=== PATIENT | female | born 1950 | race Caucasian/White ===

== ENCOUNTER 2023-05-27 22:44 | Emergency (ER) | payer MEDICARE, OTHER, SELFPAY ==
[2023-05-27 22:52] VITALS: BP 175/79; PULSE 79; RESP 18; TEMP 36.2; O2SAT 97; BMI 38.4
--- NOTE | 2023-05-27 23:02 | DI.RAD.S_ITS ---
PROCEDURE: XR CHEST 1V INDICATIONS: chest pain TECHNIQUE: One view of the chest was acquired. COMPARISON: None. FINDINGS: Surgical changes and devices: None. Lungs and pleura: Lungs are clear. No pleural effusions or pneumothorax. Mediastinum: Mediastinal contours appear normal. Heart size is normal. Bones and chest wall: No suspicious bony lesions. Overlying soft tissues appear unremarkable. IMPRESSION: No acute cardiopulmonary abnormality is seen. Dictated by: Clovis Giron M.D. on 05/28/2023 at 0:10 Approved by: Clovis Giron M.D. on 05/28/2023 at 0:10
[2023-05-28 00:33] LABS: INR 0.8 (0.9-1.3); Prothrombin Time 9.7 SECONDS (9.4-12.5)
[2023-05-28 00:34] LABS: Add Manual Diff / Slide Review NO; Basophils Absolute Auto 100 /uL (0-100); Basophils Percent Auto 0.7 % (0-2); Eosinophils Absolute Auto 400 /uL (0-450); Eosinophils Percent Auto 3.6 % (2-4); Hematocrit 38.5 % (36-46); Hemoglobin 12.9 g/dL (12.0-16.0); Lymphocytes Absolute Auto 3900 /uL (1100-4500); Lymphocytes Percent Auto 40.8 % (25-40); Mean Corpuscular HGB Conc 33.5 % (30-36); Mean Corpuscular Volume 89.5 fL (80-100); Monocytes Absolute Auto 900 /uL (0-900); Monocytes Percent Auto 9.3 % (3-14); Neutrophils Absolute Auto 4400 /uL (1500-7000); Neutrophils Percent Auto 45.6 % (50-75); Platelet Count 351 X10^3/uL (150-400); Red Cell Distribution Width 13.3 % (11.6-14.8); White Blood Cell Count 9.7 X10^3/uL (4.5-11.0)
[2023-05-28 00:35] LABS: PTT Partial Thromboplastin Tim 37 SECONDS (25.1-36.5)
[2023-05-28] MEDS: ASPIRIN 81 MG CHEW TAB 324 MG PO (00:36)
[2023-05-28 00:37] LABS: Alanine Aminotransferase 36 IU/L (<35); Albumin Globulin Ratio 1.1 (1.0-2.8); Alkaline Phosphatase 109 U/L (38-126); Aspartate Aminotransferase 41 IU/L (14-36); BUN Creatinine Ratio 36.2 (6-22); Bilirubin Total 0.4 mg/dL (0.2-1.3); Blood Urea Nitrogen 21 mg/dL (7-17); Calcium 9.2 mg/dL (8.4-10.2); Carbon Dioxide 24 mmol/L (22-32); Chloride 111 mmol/L (98-107); Creatine Kinase 38 U/L (30-135); Estimated Glomerular Filt Rate > 60 mL/min (>60); Globulin 3.5 g/dL (1.7-4.1); Glucose 89 mg/dL (80-110); HEMOLYSIS 38 (0-50); Lipase 259 U/L (23-300); Magnesium 2.2 mg/dL (1.6-2.3); Potassium 4.3 mmol/L (3.4-5.1); Sodium 141 mmol/L (137-145); Total Protein 7.5 g/dL (6.3-8.2)
[2023-05-28 00:49] LABS: Troponin I < 0.012 ng/mL (0.01-0.034)
[2023-05-28 01:27] VITALS: PULSE 69; O2SAT 97
[2023-05-28 01:28] VITALS: BP 169/74
--- NOTE | 2023-05-28 02:28 | ED.ARRPALP ---
HPI - Arrhythmia/Palpitations General Chief Complaint: Arrhythmia/Palpitations Stated Complaint: rapid HR/dizziness/sore chest Time Seen by Provider: 05/28/23 02:28 Source: patient Mode of arrival: Ambulatory History of Present Illness HPI narrative: 72-year-old female history of hypothyroidism presents with complaint of rapid heart rate for the past last several it is and then resolved. Sometimes lasts a little bit longer. She will get a chest according to occurs does not feel short of breath does not get diaphoretic. Has some nausea sometimes. No vomiting. She is felt dizzy but had no syncope. No swelling in extremities. Denies any other symptoms. No cough cold congestion symptoms. Has celiac/IBS so sometimes has diarrhea but not regularly. Patient states she is on thyroxine for hypothyroidism. Prior surgeries include gastric sleeve, no prior cardiac interventions. Did have a Holter monitor a year 2 ago for bradycardia but was told it was normal. Patient states no tobacco, rare alcohol, no recreational drugs. Her primary care is in [place] and she is spending the winter here. Related Data Allergies Allergy/AdvReac Type Severity Reaction Status Date / Time Sulfa (Sulfonamide Allergy Severe Hives Verified 05/27/23 23:02 Antibiotics) tetanus immune globulin Allergy Severe Joint Pain Verified 05/27/23 23:02 meperidine [From Demerol] Allergy Intermediate Vomiting Verified 05/27/23 23:02 Review of Systems Review of Systems ROS Unobtainable: All systems reviewed & are unremarkable except as noted in HPI and below Patient History Social History Smoking Status: Never smoker Smoking Status: Never smoker alcohol intake frequency: a few times a month Alcohol type: wine Substance Use Type: does not use Exam Narrative Exam Narrative: GENERAL: Alert and oriented x three, female in mild distress HEENT: Head normocephalic, atraumatic, EOMI, pupils reactive, face symmetric, moist mucous membranes NECK: Supple, full range of motion CARDIOVASCULAR: Regular rate and rhythm without murmurs, rubs or gallops. No JVD. No edema bilateral lower extremities. RESPIRATORY: Breath sounds equal bilaterally, no wheezes rales or rhonchi. ABDOMEN: Soft, nontender. Normoactive bowel sounds all 4 quadrants. No guarding or rebound, rigidity, no mass : No CVA tenderness EXTREMITIES: Normal range of motion, no clubbing or edema. Neurovascularly intact NEUROLOGICAL: Cranial nerves II through XII grossly intact. Moving all extremities SKIN: Warm, dry, no petechiae, no rashes or lesions. Initial Vital Signs Initial Vital Signs: Vital Signs Temperature 97.1 F L 05/27/23 22:52 Pulse Rate 79 05/27/23 22:52 Respiratory Rate 18 05/27/23 22:52 Blood Pressure 175/79 H 05/27/23 22:52 Pulse Oximetry 97 05/27/23 22:52 Oxygen Delivery Method Room Air 05/27/23 22:52 Course Orders Ordered: ED Orders 05/27/23 23:02 XR chest 1V Stat Complete Blood Count AUTO DIFF Stat Comprehensive Metabolic Panel Stat Lipase Stat Magnesium Stat PTT Partial Thromboplastin Lul Stat Prothrombin Time INR Stat Troponin & CK Cardiac Panel Stat EKG-12 Lead Stat 05/28/23 00:10 Free T4, Direct Thyroxine Stat TSH w/ Reflex to FT4 Stat Discontinued Medications Aspirin (Aspirin 81 Mg Chew Tab) 324 mg PO NOW ONE Stop: 05/27/23 23:03 Last Admin: 05/28/23 00:36 Dose: 324 mg Documented By: AB Vital Signs Vital signs: Vital Signs - 8 hr 05/27/23 22:52 05/28/23 01:27 05/28/23 01:28 Temperature 97.1 F L Pulse Rate 79 69 Respiratory Rate 18 Blood Pressure 175/79 H 169/74 H Pulse Oximetry 97 97 Oxygen Delivery Method Room Air MDM - Arrhythmia/Palpitations Lab Data 05/28/23 00:10 05/28/23 00:10 Labs: Lab Results 05/28/23 Range/Units 00:10 WBC 9.7 (4.5-11.0) X10^3/uL RBC 4.30 (4.0-5.2) X10^6/uL Hgb 12.9 (12.0-16.0) g/dL Hct 38.5 (36-46) % MCV 89.5 (80-100) fL MCH 30.0 (26-34) PG MCHC 33.5 (30-36) % RDW 13.3 (11.6-14.8) % Plt Count 351 (150-400) X10^3/uL Neut % (Auto) 45.6 L (50-75) % Lymph % (Auto) 40.8 H (25-40) % [place] % (Auto) 9.3 (3-14) % Eos % (Auto) 3.6 (2-4) % Baso % (Auto) 0.7 (0-2) % Neut # (Auto) 4400 (2747-7781) /uL Lymph # (Auto) 3900 (8043-0149) /uL [place] # (Auto) 900 (0-900) /uL Eos # (Auto) 400 (0-450) /uL Baso # (Auto) 100 (0-100) /uL PT 9.7 (9.4-12.5) SECONDS INR 0.8 L (0.9-1.3) APTT 37 H (25.1-36.5) SECONDS Sodium 141 (137-145) mmol/L Potassium 4.3 (3.4-5.1) mmol/L Chloride 111 H (98-107) mmol/L Carbon Dioxide 24 (22-32) mmol/L BUN 21 H (7-17) mg/dL Creatinine 0.58 (0.52-1.04) mg/dL Estimated GFR > 60 (>60) mL/min BUN/Creatinine Ratio 36.2 H (6-22) Glucose 89 (80-110) mg/dL Calcium 9.2 (8.4-10.2) mg/dL Magnesium 2.2 (1.6-2.3) mg/dL Total Bilirubin 0.4 (0.2-1.3) mg/dL AST 41 H (14-36) IU/L ALT 36 H (<35) IU/L Alkaline Phosphatase 109 (38-126) U/L Total Creatine Kinase 38 (30-135) U/L Troponin I < 0.012 (0.01-0.034) ng/mL Total Protein 7.5 (6.3-8.2) g/dL Albumin 4.0 (3.5-5.0) g/dL Globulin 3.5 (1.7-4.1) g/dL Albumin/Globulin Ratio 1.1 (1.0-2.8) Lipase 259 (23-300) U/L TSH < 0.02 L (0.47-4.68) uIU/mL Free T4 0.64 L (0.78-2.19) ng/dL Imaging Data Chest x-ray: Radiologist's Impresson: Virginia Monzon??72??F??1950 ? Allergy/Adv: Sulfa (Sulfonamide Antibiotics), tetanus immune globulin, meperidine (More??) Close Chest X-Ray (Signed) Giron,Clovis - 05/27/23 Launch?[address] [address] XRay Report Signed Patient: Virginia Monzon MR#: [id number] : 1950 Acct:[id number] Age/Sex: 72 / F Date of Service: 05/27/23 Loc: ED Accession Number: [id number] Procedure: XR chest 1V Ordering Provider: Nilda Sutton D.O. PROCEDURE: XR CHEST 1V INDICATIONS: chest pain TECHNIQUE: One view of the chest was acquired. COMPARISON: None. FINDINGS: Surgical changes and devices: None. Lungs and pleura: Lungs are clear. No pleural effusions or pneumothorax. Mediastinum: Mediastinal contours appear normal. Heart size is normal. Bones and chest wall: No suspicious bony lesions. Overlying soft tissues appear unremarkable. IMPRESSION: No acute cardiopulmonary abnormality is seen. Dictated by: Clovis Giron M.D. on 05/28/2023 at 0:10 Approved by: Clovis Giron M.D. on 05/28/2023 at 0:10 ECG Data Attestation: I personally reviewed and interpreted this ECG as follows: Prior ECG tracings: not available for review Interpretation: Sinus rhythm first-degree AV block rate of 67 PA 258 QRS of [address] changes. No priors for comparison. MDM Narrative Medical decision making narrative: 72-year-old female with palpitations sensation of fast heartbeat, was not captured here today. EKG shows a first-degree AV block but no other acute changes no priors for comparison. Chest x-ray is negative Patient's labs including CBC, CMP show no significant changes slight predominance of lymphocytes. INR 0.2. AST is 41 ALT is 36. Otherwise negative bilirubin in lipase. Troponins negative. She has not had her thyroid levels checked the past 7-8 months, had her thyroid level checked about a month after starting hypothyroidism medications but not since. Patient would like to return home we will discharge home and follow-up result by phone. Discussed with patient plan for follow up outpatient for Holter monitor or ZIO patch. We will give local contact she lives in [place] it isn't planning on returning any time soon. TSH is less than 0.02, free T4 is 0.64. Spoke with patient and her results. She will reach out to her primary care physician. Both TSH and free T4 are low. Discharge Plan Departure Patient Disposition: Home Clinical Impression: Palpitations Instructions: DI for Palpitations Activity Restrictions/Additional Instructions: Please follow up with your physician for recheck. There is also contact for Cardiology locally. Please call to set up an appointment. You may need a ZIO patch for Holter monitor. Please return for recurrent episodes of palpitations or fast, irregular heartbeat, new chest pain, shortness of breath, lightheadedness or passing out, increasing swelling of your extremities, diaphoresis or sweatiness or other new or concerning changes Referrals: Vinny Wing MD [Physician] - Stand Alone Forms: Patient Portal/API
[2023-05-28 03:51] LABS: TSH w/ Reflex to FT4 < 0.02 uIU/mL (0.47-4.68)
[2023-05-28 04:24] LABS: Free T4, Direct Thyroxine 0.64 ng/dL (0.78-2.19)
== END 2023-05-28 03:17 | disposition home or self-care (01) ==
PROVIDERS: Emergency Provider Emergency Medicine
DX: R00.2 Palpitations (principal); I44.0 Atrioventricular block, first degree
CPT/HCPCS: 36415; 71045; 80053; 82550; 83690; 83735; 84439; 84443; 84484; 85025; 85610; 85730; 93005; 99283; 99284

== ENCOUNTER → 2023-12-28 13:31 | Outpatient (CLI) | payer MEDICARE, OTHER, SELFPAY ==
--- NOTE | 2023-12-28 13:33 | DI.RAD.S_ITS ---
PROCEDURE: XR HAND RT 2V INDICATIONS: arthritis eval TECHNIQUE: 3 views of the hand(s) acquired. COMPARISON: None. FINDINGS: Bones: No fractures or dislocations. There is significant IP narrowing severe at the 2nd and 3rd DIP joints. Periarticular osteophytes as well as subchondral sclerosis are present. No definitive erosions are identified. In addition, prominent 1st CMC arthritic changes present. Soft tissues: No suspicious soft tissue calcifications. 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 Dictated by: Melinda De M.D. on 12/29/2023 at 15:57 Approved by: Melinda De M.D. on 12/29/2023 at 15:57
== END ==
PROVIDERS: PCP Family Medicine; Referring Provider Family Medicine; Visit Provider Family Medicine
DX: M19.90 Unspecified osteoarthritis, unspecified site (principal)
CPT/HCPCS: 73120

== ENCOUNTER → 2023-12-29 08:22 | Outpatient (CLI) | payer MEDICARE, OTHER, SELFPAY ==
[2023-12-29 09:13] LABS: Add Manual Diff / Slide Review NO; Basophils Absolute Auto 100 /uL (0-100); Basophils Percent Auto 0.9 % (0-2); Eosinophils Absolute Auto 300 /uL (0-450); Eosinophils Percent Auto 3.9 % (2-4); Hematocrit 40.4 % (36-46); Hemoglobin 13.4 g/dL (12.0-16.0); Lymphocytes Absolute Auto 3200 /uL (1100-4500); Lymphocytes Percent Auto 44.4 % (25-40); Mean Corpuscular HGB Conc 33.2 % (30-36); Mean Corpuscular Hemoglobin 31.1 PG (26-34); Mean Corpuscular Volume 93.6 fL (80-100); Monocytes Absolute Auto 500 /uL (0-900); Monocytes Percent Auto 6.7 % (3-14); Neutrophils Absolute Auto 3200 /uL (1500-7000); Neutrophils Percent Auto 44.1 % (50-75); Platelet Count 333 X10^3/uL (150-400); Red Blood Cell Count 4.31 X10^6/uL (4.0-5.2); White Blood Cell Count 7.2 X10^3/uL (4.5-11.0)
[2023-12-29 09:47] LABS: Erythrocyte Sedimentation Rate 16 MM/HR (0-20)
[2023-12-29 10:18] LABS: Hemoglobin A1C% w Est Avg Glu 5.4 % (4.0-6.0)
[2023-12-29 10:28] LABS: TSH w/ Reflex to FT4 2.57 uIU/mL (0.47-4.68)
[2023-12-29 14:36] LABS: HEMOLYSIS < 15 (0-50)
[2023-12-29 14:44] LABS: Alanine Aminotransferase 24 IU/L (<35); Albumin 4.1 g/dL (3.5-5.0); Albumin Globulin Ratio 1.5 (1.0-2.8); Alkaline Phosphatase 88 U/L (38-126); Aspartate Aminotransferase 28 IU/L (14-36); BUN Creatinine Ratio 20.2 (6-22); Bilirubin Total 0.6 mg/dL (0.2-1.3); Blood Urea Nitrogen 17 mg/dL (7-17); C-Reactive Protein Quant < 0.5 mg/dL (<1.0); Calcium 9.5 mg/dL (8.4-10.2); Carbon Dioxide 28 mmol/L (22-32); Chloride 107 mmol/L (98-107); Cholesterol 207 mg/dL (140-199); Estimated Glomerular Filt Rate > 60 mL/min (>60); Globulin 2.8 g/dL (1.7-4.1); Glucose 85 mg/dL (80-110); HDL Cholesterol 47 mg/dL (40-60); LDL Cholesterol Calculated 136 mg/dL (<100); Potassium 4.9 mmol/L (3.4-5.1); Sodium 140 mmol/L (137-145); Total Protein 6.9 g/dL (6.3-8.2); Triglycerides 120 mg/dL (35-150)
[2023-12-29 15:06] LABS: Rheumatoid Factor < 8.6 IU/mL (<12.0)
[2023-12-30 02:15] LABS: HBsAg Screen Negative (Negative); Hepatitis A Antibody IgM Negative (Negative); Hepatitis B Core Antibody IgM Negative (Negative); Hepatitis C Antibody Non Reactive (Non Reactive)
== END ==
PROVIDERS: PCP Family Medicine; Referring Provider Family Medicine; Visit Provider Family Medicine
DX: Z01.812 Encounter for preprocedural laboratory examination (principal); E03.9 Hypothyroidism, unspecified; Z13.1 Encounter for screening for diabetes mellitus; M19.90 Unspecified osteoarthritis, unspecified site; Z76.89 Persons encountering health services in other specified circumstances; Z68.41 Body mass index [BMI] 40.0-44.9, adult; M25.449 Effusion, unspecified hand; Z79.899 Other long term (current) drug therapy
CPT/HCPCS: 36415; 80053; 80061; 80074; 83036; 84443; 85025; 85651; 86140; 86430; 86480

== ENCOUNTER → 2024-03-09 11:43 | Outpatient (CLI) | payer MEDICARE, OTHER, SELFPAY ==
--- NOTE | 2024-03-09 11:44 | DI.RAD.S_ITS ---
PROCEDURE: XR DEXA AXIAL SKELETON INDICATIONS: Screening COMPARISON: None. FINDINGS: Lumbar Spine: Bone mineral density 1.076 g/cm2, T score 0.3, normal mineral density. Left Femoral Neck: Bone mineral density 0.63 g/cm2, T score -2, osteopenia. Right Femoral Neck: Bone mineral density 0.667 g/cm2, T score -1.6, osteopenia. Fracture Risk Calculation (when applicable): 10-year fracture risk of a major osteoporotic fracture 19-22 percent and of a hip fracture 5.7-7.5 percent. (T score greater or equal to -1.0 to: NORMAL) (T score from -1.1 to -2.4: OSTEOPENIA) (T score less than or equal to -2.5: OSTEOPOROSIS) IMPRESSION: Bilateral femoral neck osteopenia and normal mineral density of the lumbar spine. Follow-up guidelines as follows: Osteoporosis: Consider a repeat DEXA and Vertebral Fracture Assessment (VFA) exam in 2 years or sooner if medically necessary, to reassess this patient's status. Osteopenia: Consider a repeat DEXA in 2-3 years to reassess this patient's status, or if there is a new clinical indication. Normal: Consider a repeat DEXA in 5 years or sooner, or if there is a new clinical indication. All treatment decisions require clinical judgment and consideration of individual patient factors, including patient preferences, comorbidities, previous drug use, risk factors not captured in the FRAX model (e.g., frailty, falls, vitamin D deficiency, increased bone turnover, interval significant decline in bone density ) and possible under- or over-estimation of fracture risk by FRAX. In addition, the NOF Guide recommends that FDA-approved medical therapies be considered in postmenopausal women and men age >= 50 years with a: * Hip or vertebral (clinical or morphometric) fracture * T-score of <=-2.5 at the spine or hip * Ten-year fracture probability by FRAX of >= 3% for hip fracture or >=20% for major osteoporotic fracture. People with diagnosed cases of osteoporosis or at high risk for fracture should have regular bone mineral density tests. For patients eligible for Medicare, routine testing is allowed once every 2 years. The testing frequency can be increased to one year for patients who have rapidly progressing disease, those who are receiving or discontinuing medical therapy to restore bone mass, or have additional risk factors. Dictated by: Hua Leone M.D. on 03/09/2024 at 12:24 Approved by: Hua Leone M.D. on 03/09/2024 at 12:26
== END ==
PROVIDERS: PCP Family Medicine; Referring Provider Family Medicine; Visit Provider Family Medicine
DX: M81.0 Age-related osteoporosis without current pathological fracture (principal); E03.9 Hypothyroidism, unspecified; M19.90 Unspecified osteoarthritis, unspecified site; Z13.1 Encounter for screening for diabetes mellitus; Z76.89 Persons encountering health services in other specified circumstances
CPT/HCPCS: 77080

== ENCOUNTER → 2024-03-16 15:49 | Outpatient (CLI) | payer MEDICARE, OTHER, SELFPAY ==
--- NOTE | 2024-03-16 15:52 | DI.MG.S_ITS ---
BILATERAL DIGITAL SCREENING MAMMOGRAM 3D/2D WITH CAD: 03/16/2024 CLINICAL: Routine screening. Comparison is made to exams dated: 01/11/2022 mammogram and 03/13/2020 mammogram - out side. The breasts are almost entirely fatty (category a/<25% glandular tissue). Current study was also evaluated with a Computer Aided Detection (CAD) system. No significant masses, calcifications, or other findings are seen in either breast. There has been no significant interval change. IMPRESSION: NEGATIVE There is no mammographic evidence of malignancy. A 1 year screening mammogram is recommended. Based on the Tyrer Cuzick model (a risk assessment model) the patient's lifetime risk is 3.4% and her 10 year risk is 2.3%. According to the ACR, ACS, and NCCN guidelines, an annual breast MRI exam along with mammogram is recommended if the patient's lifetime risk is 20% or greater. This exam was interpreted at Station ID: [id number]. NOTE: For mammograms, a report in lay terms will be sent to the patient. Approximately 15% of breast malignancies will not be visualized mammographically. In the management of a palpable breast mass, a negative mammogram must not discourage biopsy of a clinically suspicious lesion. Electronically Signed By: Gerard mckenna/brigid:03/17/2024 09:48:10 letter sent: Normal Exam ACR BI-RADS Category 1: Negative
== END ==
PROVIDERS: PCP Family Medicine; Referring Provider Family Medicine; Visit Provider Family Medicine
DX: Z12.31 Encounter for screening mammogram for malignant neoplasm of breast (principal); R92.313 Mammographic fatty tissue density, bilateral breasts
CPT/HCPCS: 77063; 77067

== ENCOUNTER → 2025-01-21 12:10 | Outpatient (CLI) | payer MEDICARE, OTHER, SELFPAY ==
[2025-01-21 13:14] LABS: Appearance Urine UA CLEAR; Bilirubin Urine UA NEGATIVE (NEGATIVE); Color Urine UA YELLOW; Glucose Urine UA NEGATIVE (Negative); Ketones Urine UA NEGATIVE (NEGATIVE); Leukocyte Esterase Urine UA 1+ (NEGATIVE); Nitrite Urine UA NEGATIVE (Negative); Occult Blood Urine UA NEGATIVE (Negative); Protein Urine UA NEGATIVE (Negative); Specific Gravity Urine UA 1.015 (1.000-1.035); Urobilinogen Urine UA 0.2 E.U./dL (0.2)
[2025-01-21 13:15] LABS: pH Urine UA 5.5 (4.5-8.0)
[2025-01-21 13:17] LABS: Culture Indicated Urine Specimen Cultured
[2025-01-21 13:22] LABS: Hemoglobin A1C% w Est Avg Glu 5.7 % (4.0-6.0)
[2025-01-21 13:35] LABS: Alanine Aminotransferase 27 IU/L (<35); Albumin 4.8 g/dL (3.5-5.0); Albumin Globulin Ratio 1.4 (1.0-2.8); Alkaline Phosphatase 84 U/L (38-126); Blood Urea Nitrogen 22 mg/dL (7-17); Calcium 10.2 mg/dL (8.4-10.2); Carbon Dioxide 28 mmol/L (22-32); Chloride 101 mmol/L (98-107); Cholesterol 296 mg/dL (140-199); Estimated Glomerular Filt Rate > 60 mL/min (>60); Globulin 3.5 g/dL (1.7-4.1); Glucose 92 mg/dL (70-99); HDL Cholesterol 72 mg/dL (40-60); HEMOLYSIS 18 (0-50); Magnesium 1.8 mg/dL (1.6-2.3); Phosphorous 4.9 mg/dL (2.8-4.1); Potassium 4.4 mmol/L (3.4-5.1); Sodium 138 mmol/L (137-145); Total Protein 8.3 g/dL (6.3-8.2); Triglycerides 120 mg/dL (35-150)
[2025-01-21 14:06] LABS: Thyroid Stimulating Hormone 2.04 uIU/mL (0.47-4.68)
[2025-01-21 14:09] LABS: Ferritin 210 ng/mL (11-264)
[2025-01-21 14:11] LABS: Vitamin D 25 Hydroxy (D3) 49.6 ng/mL (30.0-100.0)
[2025-01-21 14:23] LABS: Vitamin B12 Reflex MMA if <400 > 1000 pg/mL (239-931)
[2025-01-21 14:42] LABS: Folate > 20.0 ng/mL (2.76-20.0)
== END ==
PROVIDERS: PCP Family Medicine; Referring Provider Family Medicine; Visit Provider Family Medicine
DX: R25.2 Cramp and spasm (principal); I44.0 Atrioventricular block, first degree; E78.00 Pure hypercholesterolemia, unspecified; Z79.890 Hormone replacement therapy; Z87.898 Personal history of other specified conditions; G47.30 Sleep apnea, unspecified; R68.82 Decreased libido; R10.A0 Flank pain, unspecified side; Z68.41 Body mass index [BMI] 40.0-44.9, adult; E03.9 Hypothyroidism, unspecified; M19.90 Unspecified osteoarthritis, unspecified site; R82.90 Unspecified abnormal findings in urine; R42 Dizziness and giddiness
CPT/HCPCS: 36415; 80053; 80061; 80069; 81001; 82306; 82607; 82728; 82746; 83036; 83735; 84443; 87086

== ENCOUNTER → 2025-01-28 15:34 | Outpatient (CLI) | payer MEDICARE, OTHER, SELFPAY | LOC: CAR 15:34 | PROVIDERS: PCP Family Medicine; Referring Provider Family Medicine; Visit Provider Family Medicine | DX: R00.2 Palpitations (principal); R42 Dizziness and giddiness; R00.0 Tachycardia, unspecified; R06.02 Shortness of breath | CPT/HCPCS: 93246 ==

== ENCOUNTER → 2025-01-29 11:20 | Outpatient (CLI) | payer MEDICARE, OTHER, SELFPAY ==
[2025-01-31 13:40] LABS: Calcium 9.1 mg/dL (8.7-10.3); Parathyroid Hormone, Intact 101 pg/mL (15-65)
== END ==
PROVIDERS: PCP Family Medicine; Referring Provider Family Medicine; Visit Provider Family Medicine
DX: R79.89 Other specified abnormal findings of blood chemistry (principal)
CPT/HCPCS: 36415; 82310; 83970

== ENCOUNTER → 2025-02-05 12:49 | Outpatient (CLI) | payer MEDICARE, OTHER, SELFPAY ==
--- NOTE | 2025-02-05 12:51 | DI.US.S_ITS ---
PROCEDURE: US THYROID
== END ==
LOC: US 12:50
PROVIDERS: PCP Family Medicine; Referring Provider Family Medicine; Visit Provider Family Medicine
DX: E03.9 Hypothyroidism, unspecified (principal); R79.89 Other specified abnormal findings of blood chemistry
CPT/HCPCS: 76536

== ENCOUNTER → 2025-03-04 11:05 | Outpatient (CLI) | payer MEDICARE, OTHER, SELFPAY ==
[2025-03-04 17:26] LABS: Calcium 24 Hour Urine 44 mg/day (100-300); Total Volume Urine 1900 mL
== END ==
PROVIDERS: PCP Family Medicine; Referring Provider Family Medicine; Visit Provider Family Medicine
DX: E03.9 Hypothyroidism, unspecified (principal); R79.89 Other specified abnormal findings of blood chemistry
CPT/HCPCS: 82340

== ENCOUNTER → 2025-03-06 14:54 | Outpatient (CLI) | payer MEDICARE, OTHER, SELFPAY ==
--- NOTE | 2025-03-06 14:56 | DI.ECHO.S_ITS ---
[facility] : : [address] : : [place] : : [id number] : : Phone: [phone] Echocardiogram Report + + :Name: MORGAN MISTRY Study Date: 03/06/2025 Height: 62 in : :[facility] ReadingLocation: Weight: 230 lb: : Gender: Female BSA: 2.0 m2 : :: 1950 Age: 74 yrs : :Reason For Study: SINUS BRADYCARDIA : :Ordering Physician: ANA, : :WILLIE Performed By: Harpal Holder : :Referring: WILLIE PEREZ : + + Interpretation Summary - Normal LV contractility with EF >55% with no WMA. No LVH. Normal diastolic function. - Normal RV contractility. - Normal chamber sizes. - No significant valvular abnormalities. - No obvious intracardiac shunts. - No obvious intracardiac masses/thrombi. - No hemodynamically significant pericardial effusion. - Low right sided filling pressures. Conclusion: Normal biventricular function without significant valvular abnormalities. Procedure: A two-dimensional transthoracic echocardiogram with color flow and Doppler was performed. The study quality was technically adequate. There is no prior echocardiogram noted for this patient. The patient was in normal sinus rhythm during the exam. Left Ventricle: The left ventricle is normal in size. There is normal left ventricular wall thickness. There is no ventricular septal defect visualized. The ejection fraction is estimated to be 55-60%. There are no focal wall motion abnormalities. Normal diastolic function. Right Ventricle: The right ventricle is normal in size and function. Atria: The left atrial size is normal. Right atrial size is normal. There is no Doppler evidence for an interatrial shunt. Mitral Valve: The mitral valve leaflets appear mildly thickened. There is mild mitral annular calcification. There is trace mitral regurgitation. Aortic Valve: The aortic valve is trileaflet. The aortic valve is slightly calcified. The aortic valve opens well. No aortic regurgitation is present. Tricuspid Valve: The tricuspid valve leaflets are thin and pliable. There is trace tricuspid regurgitation. Pulmonic Valve: The pulmonic valve is not well visualized. There is no pulmonic valvular regurgitation. Great Vessels: The aortic root is normal size. The ascending aorta is at the upper limits of normal in size. The pulmonary is not well visualized. The IVC is of normal diameter and collapses greater than 50% with a sniff. This suggests a low right atrial pressure of 3 mm Hg. Pericardium/ Pleura There is no pericardial effusion. There is no pleural effusion. MMode/2D Measurements & Calculations LVIDd: 4.6 cm LVOT diam: 2.1 cm LVIDs: 3.3 cm Ao root diam: 3.2 cm FS: 28.2 % asc Aorta Diam: 3.7 cm EPSS: 1.2 cm IVSd: 0.96 cm LVPWd: 0.89 cm LV an. diameter/BSA (cm/m^2): 2.3 LV sys. diameter/BSA (cm/m^2): 1.6 LA A2 area: 21.5 cm2 RA long axis: 4.0 cm LA A4 area: 21.3 cm2 RA area: 13.7 cm2 LA length (vol): 6.0 cm RA vol: 39.2 ml LA vol: 64.3 ml RA : 19.3 ml/m2 LA vol index: 31.7 ml/m2 IVC diam: 1.7 cm RVD1 (basal): 3.9 cm RVD2 (mid): 2.7 cm TAPSE: 2.4 cm Doppler Measurements & Calculations Ao V2 max: 129.2 cm/sec LVOT Max Bryant: 80.4 cm/sec Ao V2 mean: 89.6 cm/sec LV V1 max P.6 mmHg Ao max P.7 mmHg LV V1 VTI: 20.8 cm Ao mean P.6 mmHg CONCEPCION(I,D): 2.3 cm2 Ao V2 VTI: 30.0 cm CONCEPCION(V,D): 2.1 cm2 sev ratio: 0.69 CONCEPCION indexed to BSA (cm^2/m^2): 1.2 MV E max bryant: 68.7 cm/sec TR max bryant: 252.0 cm/sec MV A max bryant: 84.0 cm/sec TR max P.4 mmHg MV E/A: 0.82 PA V2 max: 87.5 cm/sec Med Peak E' Bryant: 6.7 cm/sec PA V2 mean: 60.9 cm/sec E/E' med: 10.2 PA mean P.7 mmHg Lat Peak E' Bryant: 8.8 cm/sec PA pr(Accel): 37.9 mmHg E/E' lat: 7.8 E/e' average: 9.0 MV dec time: 0.24 sec SV(LVOT): 70.1 ml Reading Physician:SEBASTIAN
== END ==
PROVIDERS: PCP Family Medicine; Referring Provider Family Medicine; Visit Provider Family Medicine
DX: I34.81 Nonrheumatic mitral (valve) annulus calcification (principal); I44.0 Atrioventricular block, first degree; R00.1 Bradycardia, unspecified; Z87.898 Personal history of other specified conditions
CPT/HCPCS: 93306